=== PATIENT | female | born 1995 | race African-American/Black ===

== ENCOUNTER 2021-11-11 05:20 | Inpatient (IN) | payer OTHER ==
[~2021-11-11] VITALS: Ht 175.3 cm; Wt 121.2 kg
[2021-11-11] VITALS (8 sets, daily range): BP systolic 94–143; BP diastolic 52–75
[~2021-11-11 05:20] MED LIST: MIRA3350 PO; MULTTAB20 PO; VITA250T4 PO
[2021-11-11] MEDS ORDERED: LR 500 ML IV ONE (05:30)
[2021-11-11] MEDS ORDERED: ceFAZolin SOD 2 GM in IV 1 EA IV ONE (05:30)
[2021-11-11] MEDS ORDERED: BICITRA 30ML SOLN UDC PO ONE (05:45)
[2021-11-11] MEDS ORDERED: LR 1,000 ML IV SCH ×2 (06:00→09:45)
[2021-11-11 06:31] LABS: HEMATOCRIT 35.4 % (36.0-47.0); HEMOGLOBIN 11.8 g/dl (12.0-15.5); MEAN CORPUSCULAR HEMOGLOBIN 30.6 pg (27.0-33.0); MEAN CORPUSCULAR HGB CONC 33.3 g/dl (32.0-36.5); MEAN CORPUSCULAR VOLUME 91.9 fl (80.0-96.0); PLATELET COUNT, AUTOMATED 240 10^3/uL (150-450); RED BLOOD COUNT 3.85 10^6/uL (4.00-5.40); WHITE BLOOD COUNT 6.2 10^3/uL (4.0-10.0)
[2021-11-11] MEDS ORDERED: MORPHINE PRES-FREE INJ 10 MG/10 ML VIAL As Ordered ONE (07:23)
[2021-11-11] MEDS ORDERED: OXYTOCIN 30 UNITS IN 0.9% NaCl 500ML IV BAG (J2590) As Ordered ONE ×2 (07:23→09:50)
[2021-11-11] MEDS ORDERED: ePHEDrine SULFATE 25 MG/5 ML(5MG/ML) SYRINGE As Ordered ONE (07:25)
[2021-11-11] MEDS ORDERED: ONDANSETRON 4MG/2ML VIAL As Ordered ONE (07:28)
[2021-11-11] MEDS ORDERED: NALOXONE INJ 0.4MG/1ML VIAL (J2310 PER 1MG) IV PRN ×2 (08:00)
[2021-11-11] MEDS ORDERED: ONDANSETRON 4MG/2ML VIAL IV PRN ×3 (08:00→09:45)
[2021-11-11] MEDS ORDERED: METOCLOPRAMIDE INJ 10MG/2ML VIAL (J2765 PER 1) IV PRN ×2 (08:00→09:45)
[2021-11-11] MEDS ORDERED: PHENYLephrine 500MCG 5ML (100MCG/ML) SYRINGE As Ordered ONE (08:25)
[2021-11-11] MEDS ORDERED: METOCLOPRAMIDE INJ 10MG/2ML VIAL (J2765 PER 1) As Ordered ONE (08:34)
[2021-11-11] MEDS ORDERED: fentaNYL 100 MCG/2 ML INJECTION As Ordered ONE (08:42)
[2021-11-11] MEDS ORDERED: BOOSTRIX/ADACEL VACCINE (DIPHTH/PERTUSS/ACELL/TETANUS) 0.5ML SYR IM ONE (09:00)
[2021-11-11] MEDS ORDERED: KETOROLAC 60MG 2ML VIAL As Ordered ONE (09:10)
[2021-11-11] MEDS ORDERED: OXYTOCIN DRIP 30 UNITS in IV 1 EA IV SCH (09:25)
[2021-11-11] MEDS ORDERED: MEASLES,MUMPS,RUBELLA VACCINE INJ (MMR-II) (90707) SC SCH (09:25)
[2021-11-11] MEDS ORDERED: RHOGAM 300 MCG (1500 IU) INJ (J2790) IM SCH (09:25)
[2021-11-11] MEDS ORDERED: PROMETHAZINE 25 MG TAB PO PRN (09:25)
[2021-11-11] MEDS ORDERED: SIMETHICONE 80MG CHEW TAB PO PRN (09:25)
[2021-11-11] MEDS ORDERED: oxyCODONE 5MG TAB PO PRN ×3 (09:25→09:45)
[2021-11-11] MEDS: LR 1,000 ML IV SCH ×2 (09:25→17:25)
[2021-11-11 09:29] LABS: CORD GAS HCO3 A 25.5 MEQ/L; CORD GAS O2 SAT A 40.7 %; CORD GAS PCO2 A 60.3 mmHg; CORD GAS PH A 7.244 UNITS; CORD GAS SBC A 20.6 MEQ/L; CORD GAS TCO2 A 27.3 MEQ/L
[2021-11-11 09:32] LABS: CORD GAS ABE V -2.4; CORD GAS HCO3 V 23.4 MEQ/L; CORD GAS O2 SAT V 84.6 %; CORD GAS PCO2 V 43.8 mmHg; CORD GAS PH V 7.345 UNITS; CORD GAS PO2 V 39.5 mmHg; CORD GAS SBC V 22.2 MEQ/L; CORD GAS TCO2 V 24.7 MEQ/L
[2021-11-11] MEDS ORDERED: fentaNYL 100 MCG/2 ML INJECTION IV PRN (09:45)
[2021-11-11] MEDS: diphenhydrAMINE 50MG/ML VIAL (J1200) IV PRN ×2 (12:41→19:57)
[2021-11-11] MEDS: ACETAMINOPHEN 500 MG TAB PO SCH ×2 (14:00→19:51)
[2021-11-11] MEDS: KETOROLAC 30 MG/ML 1ML VIAL IV SCH ×2 (14:49→21:24)
[2021-11-11] MEDS: DOCUSATE SODIUM 100MG CAPSULE PO SCH (21:24)
[2021-11-12] MEDS: LR 1,000 ML IV SCH (01:25)
[2021-11-12 02:00] VITALS: BP 127/60
[2021-11-12] MEDS: KETOROLAC 30 MG/ML 1ML VIAL IV SCH (02:35)
[2021-11-12] MEDS: ACETAMINOPHEN 500 MG TAB PO SCH ×4 (02:35→20:27)
[2021-11-12 06:00] VITALS: BP 123/58
[2021-11-12 06:23] LABS: HEMATOCRIT 22.1 % (36.0-47.0); MEAN CORPUSCULAR HEMOGLOBIN 30.6 pg (27.0-33.0); MEAN CORPUSCULAR HGB CONC 32.6 g/dl (32.0-36.5); PLATELET COUNT, AUTOMATED 191 10^3/uL (150-450); RED BLOOD COUNT 2.35 10^6/uL (4.00-5.40); WHITE BLOOD COUNT 9.1 10^3/uL (4.0-10.0)
[2021-11-12 06:31] LABS: HEMOGLOBIN 7.2 g/dl (12.0-15.5)
[2021-11-12] MEDS ORDERED: PRENATAL VITAMINS CHEWABLE TABLET PO SCH (09:00)
[2021-11-12] MEDS: PRENATAL VITAMINS CHEWABLE TABLET PO SCH (09:04)
[2021-11-12] MEDS: DOCUSATE SODIUM 100MG CAPSULE PO SCH ×2 (09:04→20:26)
[2021-11-12 10:00] VITALS: BP 121/66
[2021-11-12] MEDS: IBUPROFEN 800 MG TAB PO SCH ×2 (11:10→18:22)
[2021-11-12 14:00] VITALS: BP 120/68
[2021-11-12 18:00] VITALS: BP 112/58
[2021-11-12 22:00] VITALS: BP 126/65
[2021-11-13 02:00] VITALS: BP 119/56
[2021-11-13] MEDS: IBUPROFEN 800 MG TAB PO SCH ×2 (02:30→11:23)
[2021-11-13] MEDS: ACETAMINOPHEN 500 MG TAB PO SCH ×2 (02:30→08:28)
[2021-11-13] MEDS ORDERED: OXYC-517 PO (05:25)
[2021-11-13] MEDS ORDERED: ACET1TAB55 PO (05:25)
[2021-11-13] MEDS ORDERED: IBUP80TA PO (05:25)
[2021-11-13] MEDS ORDERED: COLA100C5 PO (05:25)
[2021-11-13 06:00] VITALS: BP 133/84
[2021-11-13] MEDS: DOCUSATE SODIUM 100MG CAPSULE PO SCH (08:28)
[2021-11-13] MEDS: PRENATAL VITAMINS CHEWABLE TABLET PO SCH (08:28)
[2021-11-13 10:00] VITALS: BP 118/76
== END 2021-11-13 13:23 | disposition home or self-care (01) | DRG 785 ==
LOC: M LDI 05:20 → M OBS 10:54
PROVIDERS: ADMIT Obstetrics & Gynecology; ATTEND Obstetrics & Gynecology
PROC: 0UB70ZZ Excision of Bilateral Fallopian Tubes, Open Approach (ICD-10-PCS; 2021-11-11)
PROC: 10D00Z1 Extraction of Products of Conception, Low, Open Approach (ICD-10-PCS; principal; 2021-11-11 07:30)
DX: O34.211 Maternal care for low transverse scar from previous cesarean delivery (principal); Z3A.39 39 weeks gestation of pregnancy; Z30.2 Encounter for sterilization